=== PATIENT | female | born 1980 | race Caucasian/White ===

== ENCOUNTER → 2020-05-17 | Outpatient (REF) | LOC: LAB 07:00 | DX: Z20.822 Contact with and (suspected) exposure to COVID-19 (principal) ==

== ENCOUNTER → 2020-09-09 | Outpatient (CLI) | payer BC | LOC: RAD 12:37 | DX: S99.921A Unspecified injury of right foot, initial encounter (principal) ==

== ENCOUNTER → 2021-01-08 | Outpatient (CLI) | payer BC | LOC: MAMMO 15:14 | DX: Z12.31 Encounter for screening mammogram for malignant neoplasm of breast (principal) ==

== ENCOUNTER → 2022-12-09 | Outpatient (CLI) | payer BC | LOC: MAMMO 15:15 | DX: Z12.31 Encounter for screening mammogram for malignant neoplasm of breast (principal) ==